=== PATIENT | female | born 1990 | race Hispanic/Latino ===

== ENCOUNTER 2017-04-29 08:18 | Day surgery (SDC) | payer OTHER ==
[~2017-04-29] VITALS: Ht 154.9 cm; Wt 54.4 kg
[~2017-04-29 08:18] MED LIST: MULT1TAB10 PO
[2017-04-29] MEDS ORDERED: fentaNYL 100 MCG/2 ML INJECTION (J3010) As Ordered ONE ×2 (08:24→11:15)
[2017-04-29] MEDS ORDERED: dexameTHASONE 4 MG/ML 1ML VIAL (J1100) As Ordered ONE (08:24)
[2017-04-29] MEDS ORDERED: MIDAZOLAM INJ 2 MG/2 ML VIAL (J2250) As Ordered ONE (08:24)
[2017-04-29] MEDS ORDERED: ONDANSETRON 4MG/2ML VIAL (J2405) As Ordered ONE (08:24)
[2017-04-29] MEDS ORDERED: GLYCOPYRROLATE INJ 0.2 MG/ML 2 ML VIAL As Ordered ONE (08:24)
[2017-04-29] MEDS ORDERED: NEOSTIGMINE 1MG/ML 5 ML SYRINGE (J2710) As Ordered ONE (08:24)
[2017-04-29] MEDS ORDERED: LIDOCAINE 2% INJ 100 MG/5 ML SDV (FOR ANES.) As Ordered ONE (08:24)
[2017-04-29] MEDS ORDERED: PROPOFOL 200 MG/20 ML VIAL As Ordered ONE (08:24)
[2017-04-29] MEDS ORDERED: ROCURONIUM BROMIDE 50 MG/5 ML VIAL/SYRINGE As Ordered ONE (08:24)
[2017-04-29] MEDS ORDERED: LR 1,000 ML IV ONE (08:30)
[2017-04-29 09:17] LABS: MEAN CORPUSCULAR HEMOGLOBIN 31.1 pg (27.0-33.0); MEAN CORPUSCULAR HGB CONC 35.1 g/dl (32.0-36.5); MEAN CORPUSCULAR VOLUME 88.6 fl (80.0-96.0); RED CELL DISTRIBUTION WIDTH 12.4 % (11.5-14.5); WHITE BLOOD COUNT 4.9 K/mm3 (4.0-10.0)
[2017-04-29 09:43] LABS: CONTROL LINE HCG INT CTR LINE PRESENT
[2017-04-29] MEDS ORDERED: BUPIVACAINE HCL 0.25% 30 ML VIAL As Ordered ONE (09:57)
[2017-04-29] MEDS ORDERED: METHYLENE BLUE 0.5% (5MG/ML) 10 ML AMP (PROVAYBLUE)(Q9968 PER 1MG) As Ordered ONE (10:43)
[2017-04-29] MEDS ORDERED: SILVER NITRATE APPLICATOR As Ordered ONE (10:56)
[2017-04-29] MEDS: fentaNYL 100 MCG/2 ML INJECTION (J3010) IV PRN ×3 (11:16→11:40)
[2017-04-29] MEDS ORDERED: LR 1,000 ML IV SCH ×2 (11:30)
[2017-04-29] MEDS ORDERED: PERCOCET 5MG/325MG TAB PO PRN (11:30)
[2017-04-29] MEDS ORDERED: ONDANSETRON 4MG/2ML VIAL (J2405) IV PRN (11:30)
[2017-04-29 15:50] VITALS: BP 102/54
== END 2017-04-29 16:10 | disposition home or self-care (01) ==
LOC: M SDC 08:18
PROVIDERS: ATTEND Obstetrics & Gynecology
DX: R10.2 Pelvic and perineal pain (principal); N97.9 Female infertility, unspecified; F41.9 Anxiety disorder, unspecified; F32.9 Major depressive disorder, single episode, unspecified; G43.909 Migraine, unspecified, not intractable, without status migrainosus; M54.9 Dorsalgia, unspecified; G47.9 Sleep disorder, unspecified
CPT/HCPCS: 36415; 49320; 58350; 84703; 85027; 86850; 86900; 86901; J1100; J2250; J2405; J2710; J3010; Q9968

== ENCOUNTER → 2017-06-23 | Outpatient (CLI) | payer OTHER ==
--- NOTE | 2017-06-23 17:40 | REP ---
Pelvic sonography with viscera sonography: History: Infertility. No comparison study. Findings: Transvaginal pelvic sonography is performed prior to and during the endometrial cannulation and saline injection. Initial images demonstrate uterine dimensions to be normal at 8.1 x 3.1 x 5.4 cm. Endometrial echo is measured at 1.1 cm. A subseptate uterus is seen. Normal ovaries are observed. Right ovary measures 3.5 x 2.0 x 2.4 cm. Left ovary dimensions of 2.7 x 2.0 x 1.7 cm. The left ovary contains a hypoechoic cyst measuring 1.4 cm in greatest diameter. Doppler flow is normal both ovaries. Resistive indices are measured 0.67 on the right and 0.35 on the left. History of solid sonography images during saline injection into the endometrium demonstrate no evidence of endometrial polyp or synechia. Impression: Hemorrhagic follicle cyst left ovary 1.4 cm in diameter. Subseptate uterus. Otherwise normal pelvic sonography and hystero-sonography. Signed by Mono Velazquez MD 06/24/2017 11:07 A
== END ==
LOC: M RADPRO 15:41
PROVIDERS: ATTEND Obstetrics & Gynecology
DX: N97.9 Female infertility, unspecified (principal)

== ENCOUNTER → 2017-10-21 | Outpatient (CLI) | payer OTHER ==
[2017-10-21 11:12] LABS: PROGESTERONE 0.4 NG/ML
[2017-10-21 11:12] LABS: ESTRADIOL < 19.0 PG/ML
== END ==
LOC: M LAB 09:15
DX: N97.9 Female infertility, unspecified (principal)

== ENCOUNTER → 2017-10-29 | Outpatient (CLI) | payer OTHER ==
[2017-10-29 10:34] LABS: PROGESTERONE 0.2 NG/ML
[2017-10-29 10:34] LABS: ESTRADIOL 169.6 PG/ML
== END ==
LOC: M LAB 09:11
DX: N97.9 Female infertility, unspecified (principal)

== ENCOUNTER 2018-10-14 22:46 | Emergency (ER) | payer OTHER ==
[~2018-10-14] VITALS: Ht 154.9 cm; Wt 52.7 kg
[2018-10-14] MEDS ORDERED: VITA250L PO (22:52)
[2018-10-14] MEDS ORDERED: NS 1,000 ML IV ONE (23:15)
[2018-10-14] MEDS ORDERED: PROMETHAZINE INJ 25 MG/ML VIAL (J2550) IV ONE (23:15)
[2018-10-14 23:35] LABS: BASO % 0.4 % (0.0-1.0); EOS # 0.1 10^3/uL (0.0-0.50); EOS % 0.7 % (0.0-3.0); HEMATOCRIT 34.8 % (36.0-47.0); HEMOGLOBIN 12.5 g/dl (12.0-15.5); LYMPH # 1.9 10^3/uL (1.5-6.5); LYMPH % 19.6 % (24.0-44.0); MEAN CORPUSCULAR HEMOGLOBIN 30.6 pg (27.0-33.0); MEAN CORPUSCULAR HGB CONC 35.9 g/dl (32.0-36.5); MEAN CORPUSCULAR VOLUME 85.3 fl (80.0-96.0); MONO # 1.3 10^3/uL (0.0-0.8); MONO % 12.7 % (0.0-5.0); NEUTROPHILS # 6.5 10^3/uL (1.8-7.7); NEUTROPHILS % 66.3 % (36.0-66.0); PLATELET COUNT, AUTOMATED 306 10^3/uL (150-450); RED BLOOD COUNT 4.08 10^6/uL (4.00-5.40); WHITE BLOOD COUNT 9.8 10^3/uL (4.0-10.0)
[2018-10-14 23:45] LABS: HCG, SERUM QUALITATIVE POSITIVE (NEGATIVE)
[2018-10-14 23:58] LABS: ALBUMIN 3.9 GM/DL (3.2-5.2); ALT/SGPT 17 U/L (12-78); BILIRUBIN,DIRECT 0.1 MG/DL (0.0-0.2); BILIRUBIN,TOTAL 0.4 MG/DL (0.2-1.0); BLOOD UREA NITROGEN 6 MG/DL (7-18); CARBON DIOXIDE LEVEL 26 MEQ/L (21-32); CHLORIDE LEVEL 106 MEQ/L (98-107); CREATININE FOR GFR 0.56 MG/DL (0.55-1.30); GLOMERULAR FILTRATION RATE > 60.0 (>60); GLUCOSE, FASTING 89 MG/DL (70-100); LIPASE 67 U/L (73-393); POTASSIUM SERUM 3.9 MEQ/L (3.5-5.1); SODIUM LEVEL 139 MEQ/L (136-145); TOTAL PROTEIN 7.1 GM/DL (6.4-8.2)
[2018-10-15] MEDS ORDERED: UNIS25TA3 PO (00:13)
[2018-10-15] MEDS ORDERED: MACR100C43 PO (00:13)
[2018-10-15] MEDS ORDERED: PYRI25TA4 PO (00:13)
[2018-10-15] MEDS ORDERED: NITROFURANTOIN (MACROBID) 100 MG CAP PO ONE (00:15)
[2018-10-15 00:42] VITALS: BP 120/55
== END 2018-10-15 00:48 | disposition home or self-care (01) ==
LOC: M ED 22:46
DX: Z32.01 Encounter for pregnancy test, result positive (principal); N30.90 Cystitis, unspecified without hematuria; R11.2 Nausea with vomiting, unspecified; Z79.899 Other long term (current) drug therapy

== ENCOUNTER 2018-10-27 15:40 | Emergency (ER) | payer OTHER ==
[~2018-10-27] VITALS: Ht 154.9 cm; Wt 55.5 kg
[~2018-10-27 15:40] MED LIST changes: +MACR100C43 PO; +PYRI25TA4 PO; +UNIS25TA3 PO; +VITA250L PO
[2018-10-27] MEDS ORDERED: PRENTAB56 (15:48)
[2018-10-27] MEDS ORDERED: UNIS25TA3 (15:48)
[2018-10-27] MEDS ORDERED: PROMETHAZINE INJ 25 MG/ML VIAL (J2550) IV ONE (17:45)
[2018-10-27] MEDS ORDERED: NS 1,000 ML IV ONE (17:45)
[2018-10-27 18:11] LABS: BASO % 0.2 % (0.0-1.0); EOS % 0.1 % (0.0-3.0); HEMATOCRIT 37.6 % (36.0-47.0); HEMOGLOBIN 13.3 g/dl (12.0-15.5); LYMPH # 1.9 10^3/uL (1.5-6.5); LYMPH % 14.1 % (24.0-44.0); MEAN CORPUSCULAR HEMOGLOBIN 30.8 pg (27.0-33.0); MEAN CORPUSCULAR HGB CONC 35.4 g/dl (32.0-36.5); MONO # 0.8 10^3/uL (0.0-0.8); MONO % 6.2 % (0.0-5.0); NEUTROPHILS # 10.8 10^3/uL (1.8-7.7); PLATELET COUNT, AUTOMATED 365 10^3/uL (150-450); RED BLOOD COUNT 4.32 10^6/uL (4.00-5.40); WHITE BLOOD COUNT 13.7 10^3/uL (4.0-10.0)
[2018-10-27 19:01] LABS: ALBUMIN 4.3 GM/DL (3.2-5.2); ALT/SGPT 13 U/L (12-78); BILIRUBIN,DIRECT 0.2 MG/DL (0.0-0.2); BILIRUBIN,TOTAL 0.4 MG/DL (0.2-1.0); BLOOD UREA NITROGEN 9 MG/DL (7-18); CALCIUM LEVEL 9.2 MG/DL (8.5-10.1); CARBON DIOXIDE LEVEL 26 MEQ/L (21-32); CHLORIDE LEVEL 104 MEQ/L (98-107); CREATININE FOR GFR 0.55 MG/DL (0.55-1.30); GLOMERULAR FILTRATION RATE > 60.0 (>60); GLUCOSE, FASTING 81 MG/DL (70-100); HCG, SERUM QUANTITATIVE 183514 MIU/ML; POTASSIUM SERUM 4.1 MEQ/L (3.5-5.1); SODIUM LEVEL 139 MEQ/L (136-145); TOTAL PROTEIN 7.8 GM/DL (6.4-8.2)
[2018-10-27 21:09] VITALS: BP 107/58
== END 2018-10-27 21:10 | disposition home or self-care (01) ==
LOC: M ED 15:40
DX: O21.9 Vomiting of pregnancy, unspecified (principal); Z79.899 Other long term (current) drug therapy; Z3A.00 Weeks of gestation of pregnancy not specified

== ENCOUNTER 2019-05-27 06:35 | Inpatient (IN) | payer OTHER ==
[~2019-05-27] VITALS: Ht 154.9 cm; Wt 69.1 kg
[2019-05-27] VITALS (25 sets, daily range): BP systolic 97–128; BP diastolic 52–83
[~2019-05-27 06:35] MED LIST changes: +PRENTAB56; +UNIS25TA3
[2019-05-27] MEDS ORDERED: PENICILLIN G POTASSIUM IV 5 MU in D5W MINI-BAG PLUS 100 ML IV STA (07:44)
[2019-05-27] MEDS ORDERED: LACTATED RINGER'S 1000 ML IV ONE (07:45)
[2019-05-27] MEDS: LR 1,000 ML IV SCH ×2 (08:09→16:41)
[2019-05-27 08:16] LABS: HEMATOCRIT 38.5 % (36.0-47.0); HEMOGLOBIN 13.6 g/dl (12.0-15.5); MEAN CORPUSCULAR HEMOGLOBIN 31.1 pg (27.0-33.0); MEAN CORPUSCULAR HGB CONC 35.3 g/dl (32.0-36.5); MEAN CORPUSCULAR VOLUME 88.1 fl (80.0-96.0); PLATELET COUNT, AUTOMATED 215 10^3/uL (150-450); RED BLOOD COUNT 4.37 10^6/uL (4.00-5.40); WHITE BLOOD COUNT 9.7 10^3/uL (4.0-10.0)
--- NOTE | 2019-05-27 12:45 | HPE ---
DATE OF ADMISSION: 05/27/2019 HISTORY: This lady is a 29-year-old, 1, para 0, last menstrual period (LMP) 08/29/2018, expected date of confinement (EDC) 06/05/2019 at 38 and 5 weeks of gestation, who came in because of contractions every 6 minutes apart, very painful, and inability to tolerate the pain. RISK FACTORS: She is an AGDM 1, anxiety and GBS positive. LABS: O negative. HIV negative. Hepatitis negative. RPR negative. Rubella immune. Varicella immune. Pap normal. Urine negative. Gonorrhea and chlamydia negative. 1-hour glucose was 156. She had a 3-hour GTT in which her fasting was 86, 1-hour was 172, 2-hour was 171 and 3-hour was 142. She is GBS positive. PHYSICAL EXAMINATION: She appears to be distressed. She is 1 cm, posterior, -3 station, thickm, no ruptured membranes. No bleeding. No show. She does have a category one strip and the contractions are every 6 minutes apart and she is quite intolerant of the contractions. Her blood pressure is 107/65, respirations are 18, pulse is 75, temperature 97.8. No urine is available. We are unable to send this lady home at the present time. She may be in early active labor. We discussed the consent for vaginal delivery which is delivery through the vagina, possible assistance of forceps or vacuum if needed, maternal or indications, forceps or vacuum device they can assist with vaginal delivery when normal pushing efforts cannot achieve delivery on their own and when delivery needed in emergency for baby's well-being, medications used to induce or augment labor to achieve vaginal delivery may be used, an episiotomy may be required to help baby deliver vaginally , and may also require repair of any lacerations or tears of the vagina or vulva that are caused by delivery in some cases. Emergencies can arise in which we need to do an emergency section for the well being of the baby and it will be fully discussed with you prior to doing that. is delivery through the abdomen and in some situations it may be better or safer for the mother and the baby than continuing labor and is only performed with clinical indications. Risks of vaginal delivery include, but are not limited to bleeding, infection, injury to vagina, pelvic structures, injury to baby, damage to the uterus, reaction to anesthesia, uterine rupture, risk of hysterectomy for life-threatening bleeding, or . Medications used to induce or augment labor may increase risk of section or hemorrhage. Additional risks with use of forceps or vacuums include scratches, hematomas of the head or intracranial bleeding. The patient verbalized understanding in between contractions and we are safe to proceed. The plan of care at the present time is to hydrate the patient with a category one strip and so far out we are discouraging epidural at the present time. Sequentials on in place. Medications for GBS prophylaxis. Notify neonatology.
[2019-05-27] MEDS: PENICILLIN G POTASSIUM IV 2.5 MU in IV 1 EA IV SCH ×3 (13:34→22:07)
[2019-05-27] MEDS ORDERED: FENTANYL 2MCG/ML ROPIVACAINE 0.2% IN 0.9% NACL 100ML IVBAG As Ordered ONE (14:20)
[2019-05-27] MEDS: FENTANYL/ROPIVACAINE/NACL BAG 100 ML EPIDURAL SCH ×2 (14:50→23:25)
[2019-05-27] MEDS ORDERED: ONDANSETRON 4MG/2ML VIAL (J2405) IV PRN (15:00)
[2019-05-27] MEDS ORDERED: ePHEDrine SULFATE 25 MG/5 ML(5MG/ML) SYRINGE IV PRN (15:00)
[2019-05-27] MEDS ORDERED: EPIDURAL COMMENT XX SCH (15:00)
[2019-05-27] MEDS ORDERED: NALOXONE INJ 0.4 MG/1 ML VIAL (J2310) IV PRN (15:00)
[2019-05-27] MEDS ORDERED: EPIDURAL/PCA KEYS XX PRN (15:00)
[2019-05-27] MEDS ORDERED: REFRIGERATOR IV KEYS XX PRN (15:00)
[2019-05-27] MEDS ORDERED: diphenhydrAMINE INJ 50MG/ML VIAL (J1200) IV PRN (15:00)
[2019-05-27] MEDS ORDERED: LACTATED RINGER'S 1000 ML IV PRN (15:00)
--- NOTE | 2019-05-27 17:33 | IPN ---
DATE: 05/27/2019 This lady is a 29-year-old, 1, para 0 at 38 and 5, came in because of intolerating pain with contractions. She had an epidural placed and the presenting part was undetermined; therefore a examination was found to be vertex occiput transverse -3, 75% anterior, which has made significant progress since her initial examination. An artificial rupture of membranes (AROM) was done draining clear liquor. The presenting part was well applied to the head and she is progressing slowly but well without Pitocin augmentation. We will reevaluate her in two hours time.
[2019-05-27] MEDS ORDERED: OXYTOCIN DRIP 30 UNITS in IV 1 EA IV SCH (20:00)
[2019-05-28] VITALS (25 sets, daily range): BP systolic 92–139; BP diastolic 52–77
[2019-05-28] MEDS ORDERED: OXYTOCIN 30 UNITS IN 0.9% NaCl 500ML IV BAG (J2590) As Ordered ONE ×2 (00:10→08:53)
[2019-05-28] MEDS: PENICILLIN G POTASSIUM IV 2.5 MU in IV 1 EA IV SCH ×2 (01:36→05:18)
[2019-05-28] MEDS: LR 1,000 ML IV SCH ×3 (01:41→20:43)
[2019-05-28] MEDS ORDERED: ACETAMINOPHEN 500 MG TAB PO ONE (02:45)
[2019-05-28] MEDS: FENTANYL/ROPIVACAINE/NACL BAG 100 ML EPIDURAL SCH (05:19)
[2019-05-28] MEDS ORDERED: LR 1,000 ML IV SCH (06:22)
[2019-05-28] MEDS ORDERED: ceFAZolin SOD 2 GM in IV 1 EA IV ONE (06:30)
[2019-05-28] MEDS ORDERED: ACETAMINOPHEN 650 MG SUPP PR SCH (06:30)
[2019-05-28] MEDS ORDERED: BICITRA 30ML SOLN UDC PO ONE (06:30)
[2019-05-28] MEDS ORDERED: BUPIVACAINE HCL 0.25% 10 ML VIAL SC ONE (06:30)
[2019-05-28] MEDS ORDERED: SODIUM BICARBONATE 8.4% INJ 50 ML SYRINGE As Ordered ONE (06:50)
[2019-05-28] MEDS ORDERED: ONDANSETRON 4MG/2ML VIAL (J2405) As Ordered ONE (06:50)
[2019-05-28] MEDS ORDERED: KETOROLAC 60 MG/2 ML VIAL (J1885) As Ordered ONE (06:50)
[2019-05-28] MEDS ORDERED: LIDOCAINE 2% W/EPIN INJ 20ML **PRES FREE As Ordered ONE (06:50)
[2019-05-28] MEDS ORDERED: OXYTOCIN INJ 10 UNITS/ML VIAL (J2590) As Ordered ONE (06:50)
[2019-05-28 07:45] LABS: CORD GAS ABE A -2.2; CORD GAS HCO3 A 25.8 MEQ/L; CORD GAS O2 SAT A 21.2 %; CORD GAS PCO2 A 57.7 mmHg; CORD GAS PH A 7.269 UNITS; CORD GAS PO2 A 13.4 mmHg; CORD GAS SBC A 20.9 MEQ/L; CORD GAS TCO2 A 27.6 MEQ/L
[2019-05-28] MEDS ORDERED: MORPHINE PRES-FREE INJ 10 MG/10 ML VIAL (J2274) As Ordered ONE (07:50)
[2019-05-28] MEDS ORDERED: diphenhydrAMINE INJ 50MG/ML VIAL (J1200) IV PRN (07:55)
[2019-05-28] MEDS ORDERED: ONDANSETRON 4MG/2ML VIAL (J2405) IV PRN ×3 (07:55→09:00)
[2019-05-28] MEDS ORDERED: NALOXONE INJ 0.4 MG/1 ML VIAL (J2310) IV PRN ×2 (07:55)
[2019-05-28] MEDS ORDERED: NALBUPHINE HCL 10 MG/ML AMP (J2300) IV PRN ×2 (07:55→08:45)
[2019-05-28] MEDS ORDERED: METOCLOPRAMIDE INJ 10MG/2ML VIAL (J2765) IV PRN (07:55)
[2019-05-28 07:56] LABS: CORD GAS O2 SAT V 66.2 %; CORD GAS PCO2 V 42.4 mmHg; CORD GAS PH V 7.313 UNITS; CORD GAS PO2 V 27.6 mmHg; CORD GAS SBC V 19.7 MEQ/L; CORD GAS TCO2 V 22.3 MEQ/L
[2019-05-28] MEDS ORDERED: PROPOFOL 200 MG/20 ML VIAL As Ordered ONE (08:16)
[2019-05-28] MEDS ORDERED: MEPERIDINE INJ 25 MG/ML VIAL (J2175) IV PRN (08:45)
[2019-05-28] MEDS ORDERED: PERCOCET 5MG/325MG TAB PO PRN (08:45)
[2019-05-28] MEDS ORDERED: HYDROMORPHONE HCL 0.5 MG/ 0.5 ML SYRINGE (J1170 PER 1) IV PRN (08:45)
[2019-05-28] MEDS ORDERED: OXYTOCIN DRIP 30 UNITS in IV 1 EA IV SCH (08:54)
[2019-05-28] MEDS ORDERED: ANUSOL HC CREAM 30GM TOP PRN (09:00)
[2019-05-28] MEDS: FERROUS SULFATE 325MG TAB PO SCH (09:00)
[2019-05-28] MEDS ORDERED: MEASLES,MUMPS,RUBELLA VACCINE INJ (MMR-II) (90707) SC SCH (09:00)
[2019-05-28] MEDS: DOCUSATE SODIUM 100 MG CAP PO SCH ×2 (09:00→20:22)
[2019-05-28] MEDS ORDERED: MOM 30ML SUSPENSION UDC PO PRN (09:00)
[2019-05-28] MEDS ORDERED: RHOGAM 300 MCG (1500 IU) INJ (J2790) IM SCH (09:00)
[2019-05-28] MEDS ORDERED: PRENATAL VITAMINS CHEWABLE TABLET PO SCH (09:00)
[2019-05-28] MEDS ORDERED: fentaNYL 100 MCG/2 ML INJECTION (J3010) As Ordered ONE (09:25)
[2019-05-28] MEDS ORDERED: NORCO, ANEXSIA 5/325MG TABLET (HYDROcodone/ACETAMINOPHEN) As Ordered ONE (09:26)
[2019-05-28] MEDS: fentaNYL 100 MCG/2 ML INJECTION (J3010) IV PRN ×2 (09:31→09:37)
--- NOTE | 2019-05-28 09:38 | IPN ---
DATE: 05/27/2019 at 11:50 p.m. This lady is complaining of pain and headache. She is having rather poor contractions, despite that her pain tolerance is very low. She does have an epidural in place that requires top up. On examination, cervix is still 4 cm. She was required to augment with Pitocin. She has a category one strip at the present time. Her blood pressure is 119/63, respirations are 18, pulse is 81 and she is afebrile. Our plan of management is to have anesthesia top up her epidural. Start Pitocin for appropriate contractions and reassess her in 2 hours time.
--- NOTE | 2019-05-28 09:43 | IPN ---
DATE: 05/28/2019 This lady was admitted at 38 and 5 weeks of gestation because of intractable pain because her contractions were 6 minutes apart. She had initially a category one strip with contractions every 6 minutes. She was unable to tolerate the painful contractions and she had an epidural placed. She was for a prolonged period of time 4 cm. She required augmentation with Pitocin. At 0300 hours, she had a prolonged deceleration. The Pitocin was turned off and she slowly progressed to an anterior lip. She was an anterior lip at 0500 hours and she maintained that position for the last hour to hour and a quarter. There was evidence of tachycardia and elements of non-reassuring heart tones. We examined her and found that she was asynclitic with a moderate amount of molding and a -2 station with still the anterior lip despite IV boluses and turning off the Pitocin and turning on the Pitocin she has maintained that pattern and therefore because of a non-reassuring heart strip, persistent occiput posterior, asynclitic head and anterior lip, we elected to have a primary section. The patient and are in agreement with the plan of care and we will await giving her antibiotics and anesthesia in order to proceed to section. In summary, we have a term gestation with non-reassuring heart tones, persistent occiput posterior (POP), asynclitic and anterior lip for a section.
[2019-05-28] MEDS: KETOROLAC 30 MG/ML VIAL (J1885) IV SCH ×2 (14:09→20:23)
[2019-05-29] MEDS: KETOROLAC 30 MG/ML VIAL (J1885) IV SCH (01:45)
[2019-05-29 02:20] VITALS: BP 99/55
[2019-05-29 05:38] VITALS: BP 98/56
[2019-05-29 06:48] LABS: HEMATOCRIT 27.9 % (36.0-47.0); MEAN CORPUSCULAR HEMOGLOBIN 30.7 pg (27.0-33.0); MEAN CORPUSCULAR HGB CONC 35.1 g/dl (32.0-36.5); MEAN CORPUSCULAR VOLUME 87.5 fl (80.0-96.0); PLATELET COUNT, AUTOMATED 178 10^3/uL (150-450); RED BLOOD COUNT 3.19 10^6/uL (4.00-5.40); WHITE BLOOD COUNT 15.4 10^3/uL (4.0-10.0)
[2019-05-29 06:53] LABS: HEMOGLOBIN 9.8 g/dl (12.0-15.5)
[2019-05-29] MEDS: oxyCODONE 5MG TAB PO PRN ×3 (08:01→17:08)
[2019-05-29] MEDS ORDERED: PRENATAL VITAMINS CHEWABLE TABLET PO SCH (09:00)
[2019-05-29] MEDS ORDERED: INFLUENZA QUADRIVALENT PF VACCINE 0.5ML SYRINGE (90686) IM ONE (09:00)
--- NOTE | 2019-05-29 09:07 | IPNPDOC ---
Text Note Date of Service The patient was seen on 05/29/19. NOTE Ob Considerations: GDMA1 Anxiety 29y/o [id number] POD#1 s/p PLTCS at 38+6 wks for NRFT/arrest of dilation on 28May2019. This morning, patient is doing well other than soreness. She reports ambulating without lightheadedness, voiding without difficulty and tolerating regular diet. Lochia is diminishing. She is breast and bottle feeding. VS: Reviewed. Mild range BPs during surgical recovery. Now normotensive, non tachycardic, afebrile. General : alert and oriented Resp: non labored breathing CV: well perfused Abd: Soft, NT/ND. U-3. Incision clean, dry, intact. Ext: No edema, erythema or calf tenderness HCT 38.5 -> 27.9 Voiding spontaneously A/p: 29y/o , POD#1 s/p PLTCS, recovering well -Encourage hydration, ambulation, breast feeding, IS use -Motrin and Percocet for pain control -Contraception: Undecided -O neg -> assess for Rhogam prior to discharge -Rubella immune -Will need 2 hr glucose prior to 6 wk visit -Anticipate discharge on POD#2-3 VS,Fishbone, I+O VS, Fishbone, I+O Laboratory Tests 05/29/19 06:17 Red Blood Count 3.19 L, Mean Corpuscular Volume 87.5, Mean Corpuscular Hemoglobin 30.7, Mean Corpuscular Hemoglobin Concent 35.1, Red Cell Distribution Width 16.4 H Vital Signs Date Time Temp Pulse Resp B/P (MAP) Pulse Ox O2 Delivery O2 Flow Rate FiO2 05/29/19 08:01 16 05/29/19 05:38 98.2 86 98/56 (70) 98 I&O- Last 24 Hours up to 6 AM 05/29/19 05:59 Intake Total 1350 ml Output Total 2300 ml Balance -950 ml Ce Mann MD May 29, 2019 09:07
[2019-05-29] MEDS: IBUPROFEN 800 MG TAB PO SCH ×2 (09:28→17:07)
[2019-05-29] MEDS: FERROUS SULFATE 325MG TAB PO SCH (09:29)
[2019-05-29] MEDS: DOCUSATE SODIUM 100 MG CAP PO SCH ×2 (09:29→20:34)
[2019-05-29 10:00] VITALS: BP 109/64
[2019-05-29 14:00] VITALS: BP 104/57
[2019-05-29] MEDS: ACETAMINOPHEN 500 MG TAB PO PRN (15:19)
[2019-05-29 18:00] VITALS: BP 102/57
[2019-05-29 22:07] VITALS: BP 111/58
[2019-05-30] MEDS: ACETAMINOPHEN 500 MG TAB PO PRN (01:13)
[2019-05-30] MEDS: IBUPROFEN 800 MG TAB PO SCH (02:09)
[2019-05-30 02:16] VITALS: BP 110/62
[2019-05-30 06:07] VITALS: BP 120/73
--- NOTE | 2019-05-30 08:04 | IPNPDOC ---
Text Note Date of Service The patient was seen on 05/30/19. NOTE Ob Considerations: GDMA1 Anxiety 29y/o [id number] POD#2 s/p PLTCS at 38+6 wks for NRFT/arrest of dilation on 28May2019. This morning, patient is doing well other than soreness. She reports ambulating without lightheadedness, voiding without difficulty and t olerating regular diet. Lochia is diminishing. She is breast and bottle feeding. VS: Reviewed. Normotensive, afebrile, non tachycardic. General : alert and oriented Resp: non labored breathing CV: well perfused Abd: Soft, NT/ND. U-3. Incision clean, dry, intact. Ext: No edema, erythema or calf tenderness HCT 38.5 -> 27.9 Voiding spontaneously A/p: 29y/o , POD#2 s/p PLTCS, recovering well -Encourage hydration, ambulation, breast feeding, IS use -Motrin and Percocet for pain control -Contraception: Undecided -O neg -> baby Apos, patient has received rhogam -Rubella immune -Will need 2 hr glucose prior to 6 wk visit -Discharge today with infant. VS,Fishbone, I+O VS, Fishbone, I+O Vital Signs Date Time Temp Pulse Resp B/P (MAP) Pulse Ox O2 Delivery O2 Flow Rate FiO2 05/30/19 06:07 97.9 63 16 120/73 (89) 05/30/19 02:16 99 Ce Mann MD May 30, 2019 08:04
[2019-05-30] MEDS ORDERED: COLA100C5 PO (08:07)
[2019-05-30] MEDS ORDERED: IBUP80TA PO (08:07)
[2019-05-30] MEDS ORDERED: ACET-683 PO (08:07)
--- NOTE | 2019-05-30 08:31 | OBDS ---
[facility] Obstetrical Discharge Sum. Obstetrical Discharge Summary Attorney Law Clerk/Provider: Ce Mann MD Date: May 30, 2019 Time: 08:31 : 1 Term: 1 Pre-term: 0 Abortions: 0 Livin VDRL: Non-Reactive Rh: Negative Rubella: Immune Labor 29y/o G1 admitted at 38+5 wks for painful contractions. With Pitocin augmentation, she progressed to anterior lip, but was asynclitic, occiput posterior and had persistent CatII tracing. Therefore, a section was recommended. Delivery Uncomplicated PLTCS at 38+6 wks. Patient had an uncomplicated course. On the day of discharge, her pain was well controlled on oral medicines. She was tolerating regular diet and voiding without difficulty. She was voiding spontaneously and had normal bowel activities. She was breast and bottle feeding. Meeting all criteria, she was discharged on POD#2. Infant Sex: Male Weight: pounds (8), ounces (8), grams (3850) Anesthesia: Regional Anesthesia Episiotomy None A/P, Post Course List any complications Admission diagnosis: Contractions, Term. Discharge diagnosis: Single Live Condition at Discharge: Stable Discharge Instructions: Home Activity: As tolerated. No lifting > 20 lbs. Pelvic rest x6 weeks. Diet: Regular Medications: Given to patient Follow-up: 2 week incision check and 6 week visit. Other: You should go to [facility] to complete fasting 2 hour glucose test prior to your 6 week visit. Ce Mann MD May 30, 2019 08:31
--- NOTE | 2019-06-09 11:43 | RO ---
DATE OF PROCEDURE: 05/28/2019 PREOPERATIVE DIAGNOSES: Primary section. Nonreassuring heart strip. Persistent occiput posterior asynclitic. Group B Streptococcus (GBS) positive. Gestational diabetes. POSTOPERATIVE DIAGNOSES: Primary section. Nonreassuring heart strip. Persistent occiput posterior asynclitic. Group B Streptococcus (GBS) positive. Gestational diabetes. OPERATION PROPOSED: Primary section. OPERATION PERFORMED: Primary section. SURGEON: Bhaskar Fan MD [employer] REPRESENTATIVE: Juliocesar Garcia DO, for extraction, retraction and visualization. ANESTHESIA: Spinal plus local anesthetic for intraperitoneal procedures. ESTIMATED BLOOD LOSS: 300 mL. This patient is a 1, para 0, 38 and 6, who was admitted with contractions, eventually got to almost fully dilated with an anterior lip, persistent occiput posterior, category 2 strip throughout, asynclitism, nonreassuring strip. GBS positive. Preoperative diagnosis and postoperative were same. Operation proposed was primary section, operation performed was primary section, as mentioned. Anesthesia was spinal plus local anesthetic for intraperitoneal procedures. Estimated blood loss was 300 mL. After adequate time out, prepped and draped in the supine position, a Bravo catheter in the bladder draining clear urine, acetaminophen suppository 1300 mg per rectum, sequentials in place, antibiotics appropriately dispensed preoperatively, a Pfannenstiel incision was made two fingerbreadths above the symphysis pubis passing through abdominal layers securing hemostasis. Opening the peritoneal cavity, the bladder reflected well down anteriorly. Low transverse incision made into a thin lower uterine segment. We delivered the POP position a live male , scores of nine and nine at 1 and 5 minutes, respectively. weight was 8 pounds 8 ounces. The placenta was manually removed, three-vessel cord, membranes and tissues intact. The interior of the uterus was swept out. No evidence of membranes or tissue. The arterial pH was 7.26, base excess -2.2, venous pH 7.31, base excess -5. The uterus contracted well under Pitocin. The lower segment was oversewn in the usual fashion, imbricating the second layer. Perineum was replaced. Both ovaries and tubes appeared to be normal. The abdomen was then closed running stitch for the perineum, same for the fascia, interrupted for subcu, Dexon to the skin. Marcaine 0.25% 10 mL with spray and tape and the patient was taken back to mother with discharge instructions.
== END 2019-05-30 11:05 | disposition home or self-care (01) | DRG 773 ==
LOC: M LDO 06:35 → M LDI 08:10 → M OBS 05-28 11:03
PROVIDERS: ADMIT Obstetrics & Gynecology; ATTEND Obstetrics & Gynecology
PROC: 10907ZC Drainage of Amniotic Fluid, Therapeutic from Products of Conception, Via Natural or Artificial Opening (ICD-10-PCS; 2019-05-27)
PROC: 10D00Z1 Extraction of Products of Conception, Low, Open Approach (ICD-10-PCS; principal; 2019-05-28 06:39)
DX: O24.429 Gestational diabetes mellitus in childbirth, unspecified control (principal); Z3A.38 38 weeks gestation of pregnancy; O99.824 Streptococcus B carrier state complicating childbirth; Z37.0 Single live birth; O76 Abnormality in fetal heart rate and rhythm complicating labor and delivery; O64.0XX0 Obstructed labor due to incomplete rotation of fetal head, not applicable or unspecified